=== PATIENT | male | born 1990 | race Caucasian/White ===

== ENCOUNTER 2018-02-10 07:50 | Emergency (ER) | payer BC, OTHER ==
[~2018-02-10] VITALS: Ht 190.5 cm; Wt 79.3 kg
[~2018-02-10 07:50] MED LIST: Z.0.NO CURRENT MEDS
[2018-02-10 07:51] VITALS: BP 122/66; PULSE 72; RESP 16; TEMP 97.6; O2SAT 99
[2018-02-10] MEDS ORDERED: AMOX875T PO (08:00)
[2018-02-10] MEDS ORDERED: DICL25 PO (08:00)
--- NOTE | 2018-02-10 08:16 | PD ---
HPI Chief Complaint: ENT Complaint Time Seen by Provider: 08:01 Travel History International Travel<30 days: No Contact w/Intl Traveler<30days: No Traveled to known affect area: No History of Present Illness HPI This 27-year-old male complaining of sore throat. He started having a sore throat on Tuesday. He went to urgent care center and was told that he had a strep throat. He was started on amoxicillin. He has been taking the amoxicillin since Tuesday. There is been no vomiting or diarrhea. He has a slight cough and has had persistent sore throat. The throat is quite painful at times. He has taken some [id number] medication with some relief there has not been any vomiting or diarrhea. He had a temperature 101.3. A throat swab was not done at urgent care center [facility] Past Medical History Medical History: Denies Significant Hx Diminished Hearing: No Influenza Vaccination: No Past Surgical History Surgical History: No Previous Surgery Tonsillectomy: Yes Social History Alcohol Use: Yes Tobacco Use: No Substance Use: No Allergies-Medications (Allergen,Severity, Reaction): Coded Allergies: No Known Allergies (Verified Allergy, Mild, 02/10/18) Reported Meds & Prescriptions Reported Meds & Active Scripts Active Reported Diclofenac Sodium DR (Diclofenac Sodium) 25 Mg Tabdr 25 Mg PO BID Amoxicillin 875 Mg Tab 875 Mg PO BID Review of Systems General / Constitutional: Positive: Fever, Chills Eyes: No: Diploplia HENT: Positive: Sore Throat Cardiovascular: No: Chest Pain or Discomfort, Palpitations Respiratory: Positive: Cough Gastrointestinal: No: Vomiting, Diarrhea Genitourinary: No: Dysuria Musculoskeletal: No: Myalgias, Arthralgias Neurologic: No: Weakness, Dizziness Hematologic/Lymphatic: No: Easy Bruising Physical Exam Narrative GENERAL: Well-developed male SKIN: Focused skin assessment warm/dry. HEAD: Atraumatic. Normocephalic. EYES: Pupils equal and round. No scleral icterus. No injection or drainage. ENT: No nasal bleeding or discharge. Mucous membranes pink and moist. Posterior pharynx is erythematous. There is no exudate. There is no palpable adenopathy NECK: Trachea midline. No JVD. CARDIOVASCULAR: Regular rate and rhythm. No murmur appreciated. RESPIRATORY: No accessory muscle use. Clear to auscultation. Breath sounds equal bilaterally. GASTROINTESTINAL: Abdomen soft, non-tender, nondistended. Hepatic and splenic margins not palpable. MUSCULOSKELETAL: No obvious deformities. No clubbing. No cyanosis. No edema. NEUROLOGICAL: Awake and alert. No obvious cranial nerve deficits. Motor grossly within normal limits. Normal speech. PSYCHIATRIC: Appropriate mood and affect; insight and judgment normal. Data Data Last Documented VS Vital Signs Date Time Temp Pulse Resp B/P (MAP) Pulse Ox O2 Delivery O2 Flow Rate FiO2 02/10/18 07:51 97.6 72 16 122/66 (84) 99 MDM Medical Decision Making Medical Screen Exam Complete: Yes Emergency Medical Condition: Yes Medical Record Reviewed: Yes Differential Diagnosis Differential includes viral pharyngitis, strep throat Narrative Course Exam at this time is consistent with viral pharyngitis. I do not think a swab would be helpful is been on antibiotics for 2 days. The most likely reason he has not improved with antibiotics as of this was probably viral to begin with. Diagnosis Primary Impression: Acute viral pharyngitis Disposition: DISCHARGE HOME Condition: Stable Simone Greenwood MD February 10, 2018 08:16
== END 2018-02-10 08:59 | disposition home or self-care (01) ==
LOC: PHED 07:50
DX: J02.8 Acute pharyngitis due to other specified organisms (principal); R05 Cough
CPT/HCPCS: 99281